=== PATIENT | female | born 1975 | race Two or more races ===

== ENCOUNTER 2017-10-24 20:15 | Emergency (ER) | payer SELFPAY ==
[~2017-10-24] VITALS: Ht 157.5 cm; Wt 76.2 kg
[2017-10-24 21:17] VITALS: BP 138/76
[2017-10-24 21:17] LABS: BASO # 0.1 x10^3/uL (0.0-0.2); BASO % 1 % (0-3); EOS # 0.1 x10^3/uL (0.0-0.7); EOS % 1 % (0-3); HEMATOCRIT 37.4 % (36.0-47.0); HEMOGLOBIN 13.1 g/dL (12.0-15.5); LYMPH # 3.8 x10^3/uL (1.0-4.8); LYMPH % 37 % (24-48); MEAN CORPUSCULAR HEMOGLOBIN 29 pg (25-35); MEAN CORPUSCULAR HGB CONC 35 g/dL (31-37); MEAN CORPUSCULAR VOLUME 83 fL (79-100); MONO # 0.8 x10^3/uL (0.0-1.1); MONO % 8 % (0-9); NEUT # 5.6 x10^3uL (1.8-7.7); NEUT % 54 % (31-73); PLATELET COUNT 247 x10^3/uL (140-400); RED BLOOD COUNT 4.52 x10^6/uL (3.50-5.40); RED CELL DISTRIBUTION WIDTH 14.5 % (11.5-14.5); WHITE BLOOD COUNT 10.4 x10^3/uL (4.0-11.0)
[2017-10-24 21:25] LABS: CALCIUM 9.3 mg/dL (8.5-10.1); CREATININE 0.8 mg/dL (0.6-1.0); GFR 79.4; POTASSIUM 3.6 mmol/L (3.5-5.1)
[2017-10-24 21:28] LABS: BILIRUBIN,URINE NEGATIVE (NEG); CLARITY,URINE CLEAR; COLOR,URINE YELLOW; NITRITE,URINE NEGATIVE (NEG); PH,URINE 7.5; PROTEIN,URINE NEGATIVE (NEG-TRACE)
[2017-10-24] MEDS ORDERED: ONDANSETRON PF 4 MG/2 ML VIAL. IV ONE (21:30)
[2017-10-24] MEDS ORDERED: diphenhydrAMINE 50 MG/ML VIAL IVP ONE (21:30)
[2017-10-24] MEDS ORDERED: DEXAMETHASONE SOD PHOS 20 MG/5 ML VIAL. IV ONE (21:30)
[2017-10-24] MEDS ORDERED: IV NORMAL SALINE 1000ML BAG 1,000 ML IV ONE (21:30)
[2017-10-24 21:31] LABS: ALBUMIN 4.2 g/dL (3.4-5.0); ALBUMIN/GLOBULIN RATIO 1.1 (1.0-1.7); TOTAL BILIRUBIN 0.3 mg/dL (0.2-1.0); TOTAL PROTEIN 8.1 g/dL (6.4-8.2)
[2017-10-24 21:33] LABS: BACTERIA,URINE FEW /HPF (0-FEW); RBC,URINE 0 /HPF (0-2); SQUAMOUS EPITHELIAL CELL,UR MOD /LPF
[2017-10-24 21:34] LABS: BARBITURATES POS (NEG); BENZODIAZEPINES NEG (NEG); CANNABINOIDS NEG (NEG); COCAINE NEG (NEG); METHADONE NEG (NEG); OPIATES NEG (NEG); PHENCYCLIDINE NEG (NEG)
[2017-10-24 21:36] LABS: AMPHETAMINE/METHAMPHETAMINE NEG (NEG)
--- NOTE | 2017-10-24 21:37 | PHYS DOC ---
Adult General Chief Complaint Chief Complaint: HEADACHE HPI HPI Patient is a 42 year old Fijian-speaking female who presents today with multiple complaints. Patient is complaining over 10 out of 10 generalize headache that has been going on intermittently for 1 month. Patient denies any known injury. Denies any fever. Denies any neck pain. She states she was seen by her own doctor on Saturday for the same headache as well as left external ear infection. She states they started her on hydrocodone, naproxen, polymyxin eardrops and cephalexin. She states the medications are not helping. She appears anxious on arrival, she states she has history of anxiety and is not on any medications. Interpretation provided by the daughter Review of Systems Review of Systems Constitutional: Denies fever or chills [] Eyes: Denies change in visual acuity, redness, or eye pain [] HENT: Reports left ear infection. Denies nasal congestion or sore throat [] Respiratory: Denies cough or shortness of breath [] Cardiovascular: No additional information not addressed in HPI [] GI: Denies abdominal pain, nausea, vomiting, bloody stools or diarrhea [] : Denies dysuria or hematuria [] Musculoskeletal: Denies back pain or joint pain [] Integument: Denies rash or skin lesions [] Neurologic: Reports headache, denies focal weakness or sensory changes [] Pysch: Appears anxious All other systems were reviewed and found to be within normal limits, except as documented in this note. Current Medications Current Medications Current Medications Medications (Trade) Dose Ordered Sig/Harjinder Start Time Stop Time Status Last Admin Dose Admin Dexamethasone Sodium Phosphate (Decadron) 10 mg 1X ONCE 10/24/17 21:30 10/24/17 21:31 DC 10/24/17 21:38 10 MG Diphenhydramine HCl (Benadryl) 25 mg 1X ONCE 10/24/17 21:30 10/24/17 21:31 DC 10/24/17 21:38 25 MG Lorazepam (Ativan) 1 mg 1X ONCE 10/24/17 21:30 10/24/17 21:31 DC 10/24/17 21:39 1 MG Ondansetron HCl (Zofran) 4 mg 1X ONCE 10/24/17 21:30 10/24/17 21:31 DC 10/24/17 21:38 4 MG Sodium Chloride 1,000 ml @ 1,000 mls/hr 1X ONCE 10/24/17 21:30 10/24/17 22:29 10/24/17 21:45 1,000 MLS/HR Allergies Allergies Allergies Coded Allergies Type Severity Reaction Last Updated Verified No Known Drug Allergies 10/24/17 No Physical Exam Physical Exam Constitutional: Well developed, well nourished, no acute distress, non-toxic appearance. [] HENT: Normocephalic, atraumatic, bilateral external ears normal, oropharynx moist, no oral exudates, nose normal. [] Eyes: PERRLA, EOMI, conjunctiva normal, no discharge. [] Neck: Normal range of motion, no tenderness, supple, no stridor. [] Cardiovascular:Heart rate regular rhythm, no murmur [] Lungs & Thorax: Bilateral breath sounds clear to auscultation [] Abdomen: Bowel sounds normal, soft, no tenderness, no masses, no pulsatile masses. [] Skin: Warm, dry, no erythema, no rash. [] Back: No tenderness, no CVA tenderness. [] Extremities: No tenderness, no cyanosis, no clubbing, ROM intact, no edema. [] Neurologic: Alert and oriented X 3, normal motor function, normal sensory function, no focal deficits noted. Cranial nerves II through XII intact Psychologic: Patient appears very anxious. Current Patient Data Vital Signs Vital Signs Date Time Temp Pulse Resp B/P (MAP) Pulse Ox O2 Delivery O2 Flow Rate FiO2 10/24/17 20:25 98.7 73 22 151/90 (110) 99 Room Air 98.7 Lab Values Laboratory Tests Test 10/24/17 20:55 10/24/17 21:10 White Blood Count 10.4 x10^3/uL (4.0-11.0) Red Blood Count 4.52 x10^6/uL (3.50-5.40) Hemoglobin 13.1 g/dL (12.0-15.5) Hematocrit 37.4 % (36.0-47.0) Mean Corpuscular Volume 83 fL (79-100) Mean Corpuscular Hemoglobin 29 pg (25-35) Mean Corpuscular Hemoglobin Concent 35 g/dL (31-37) Red Cell Distribution Width 14.5 % (11.5-14.5) Platelet Count 247 x10^3/uL (140-400) Neutrophils (%) (Auto) 54 % (31-73) Lymphocytes (%) (Auto) 37 % (24-48) Monocytes (%) (Auto) 8 % (0-9) Eosinophils (%) (Auto) 1 % (0-3) Basophils (%) (Auto) 1 % (0-3) Neutrophils # (Auto) 5.6 x10^3uL (1.8-7.7) Lymphocytes # (Auto) 3.8 x10^3/uL (1.0-4.8) Monocytes # (Auto) 0.8 x10^3/uL (0.0-1.1) Eosinophils # (Auto) 0.1 x10^3/uL (0.0-0.7) Basophils # (Auto) 0.1 x10^3/uL (0.0-0.2) Sodium Level 137 mmol/L (136-145) Potassium Level 3.6 mmol/L (3.5-5.1) Chloride Level 100 mmol/L (98-107) Carbon Dioxide Level 30 mmol/L (21-32) Anion Gap 7 (6-14) Blood Urea Nitrogen 15 mg/dL (7-20) Creatinine 0.8 mg/dL (0.6-1.0) Estimated GFR (Cockcroft-Gault) 79.4 BUN/Creatinine Ratio 19 (6-20) Glucose Level 142 mg/dL (70-99) H Calcium Level 9.3 mg/dL (8.5-10.1) Total Bilirubin 0.3 mg/dL (0.2-1.0) Aspartate Amino Transferase (AST) 139 U/L (15-37) H Alanine Aminotransferase (ALT) 261 U/L (14-59) H Alkaline Phosphatase 87 U/L (46-116) Total Protein 8.1 g/dL (6.4-8.2) Albumin 4.2 g/dL (3.4-5.0) Albumin/Globulin Ratio 1.1 (1.0-1.7) Ethyl Alcohol Level < 10 mg/dL (0-10) Urine Collection Type Unknown Urine Color Yellow Urine Clarity Clear Urine pH 7.5 Urine Specific [place] 1.010 Urine Protein Negative mg/dL (NEG-TRACE) Urine Glucose (UA) Negative mg/dL (NEG) Urine Ketones (Stick) Negative mg/dL (NEG) Urine Blood Negative (NEG) Urine Nitrite Negative (NEG) Urine Bilirubin Negative (NEG) Urine Urobilinogen Dipstick 1.0 mg/dL (0.2 mg/dL) Urine Leukocyte Esterase Small (NEG) Urine RBC 0 /HPF (0-2) Urine WBC 5-10 /HPF (0-4) Urine Squamous Epithelial Cells Mod /LPF Urine Bacteria Few /HPF (0-FEW) Urine Mucus Slight /LPF Urine Opiates Screen Neg (NEG) Urine Methadone Screen Neg (NEG) Urine Barbiturates Pos (NEG) Urine Phencyclidine Screen Neg (NEG) Urine Amphetamine/Methamphetamine Neg (NEG) Urine Benzodiazepines Screen Neg (NEG) Urine Cocaine Screen Neg (NEG) Urine Cannabinoids Screen Neg (NEG) Urine Ethyl Alcohol Neg (NEG) Laboratory Tests 10/24/17 20:55 Laboratory Tests 10/24/17 20:55 EKG EKG [] Radiology/Procedures Radiology/Procedures []PROCEDURE: CT HEAD WO CONTRAST PQRS Compliance statement: One or more of the following individualized dose reduction techniques were utilized for this examination: 1. Automated exposure control. 2. Adjustment of the mA and/or kV according to patient size. 3. Use of iterative reconstruction technique. Indication:headache x 1 month, no priors TECHNIQUE: CT head without IV contrast COMPARISON:None FINDINGS: No pathologic extra-axial or intra-axial fluid collection. The ventricles and basal cisterns are within normal limits. No acute intracranial bleed. No focal loss of burgos-white differentiation. Orbits within normal limits. No suspicious calvarial lesion. There is complete opacification of the right maxillary sinus. Rest of the paranasal sinuses and mastoid air cells are clear. IMPRESSION: 1. No acute intracranial process. 2. Chronic right maxillary sinus disease. Electronically signed by: Darien Rojas DO (10/24/2017 10:02 PM) [facility] DICTATED and SIGNED BY: DARIEN ROJAS DO DATE: 10/24/172156 Course & Med Decision Making Course & Med Decision Making Pertinent Labs and Imaging studies reviewed. (See chart for details) This is a 42-year-old female patient presented to the ED today with multiple complaints specifically a headache that has been going on for month. Patient was anxious on arrival to the ED, she states she has history of anxiety and is not on any medication. She is currently being treated for otitis externa, she is on hydrocodone and cephalexin naproxen and polymyxin eardrops. CBC with no acute findings, CMP with AST of 139 ALT of 261, patient has no abdominal pain. CT of the head was negative for any acute findings, noted for chronic sinusitis. Patient was given IV fluids Decadron Zofran Benadryl and Ativan. She is resting comfortably. She states her headache has eased off and she is no longer anxious. Will be discharged with instructions to continue taking the rest of her medications she got from her PCP. Also given prescription for Xanax 10 tablets. Instructed to follow-up with the PCP in the course of next week. Dragon Disclaimer Dragon Disclaimer This electronic medical record was generated, in whole or in part, using a voice recognition dictation system. Departure Departure Impression: Primary Impression: Headache Additional Impressions: Anxiety Chronic sinusitis Otitis externa, left Transaminitis Disposition: HOME, SELF-CARE Condition: STABLE Referrals: NO PCP (PCP) Follow-up with your own doctor in the course of this week or next week Patient Instructions: Anxiety and Panic Attacks, General Headache Without Cause , [id number] Additional Instructions: You were evaluated in the emergency room for headache and anxiety. Please continue taking the medications you got from your own doctor. Take the prescribed Xanax as needed for anxiety. Come back to the emergency room at any point symptoms worsen. Scripts Alprazolam (XANAX) 0.5 Mg Tablet 1 TAB PO TID PRN for ANXIETY / AGITATION, #10 TAB 0 Refills Prov: VENTURA MARQUIS APRN 10/24/17 Problem Qualifiers Primary Impression: Headache Headache type: unspecified Headache chronicity pattern: unspecified pattern Intractability: not intractable Qualified Codes: R51 - Headache Additional Impressions: Chronic sinusitis Sinusitis location: maxillary Qualified Codes: J32.0 - Chronic maxillary sinusitis Otitis externa, left Otitis externa type: other infective Chronicity: acute Qualified Codes: H60.392 - Other infective otitis externa, left ear VENTURA MARQUIS [employer] Oct 24, 2017 21:37
--- NOTE | 2017-10-24 22:05 | RAD ---
PQRS Compliance statement: One or more of the following individualized dose reduction techniques were utilized for this examination: 1. Automated exposure control. 2. Adjustment of the mA and/or kV according to patient size. 3. Use of iterative reconstruction technique. Indication:headache x 1 month, no priors TECHNIQUE: CT head without IV contrast COMPARISON:None FINDINGS: No pathologic extra-axial or intra-axial fluid collection. The ventricles and basal cisterns are within normal limits. No acute intracranial bleed. No focal loss of burgos-white differentiation. Orbits within normal limits. No suspicious calvarial lesion. There is complete opacification of the right maxillary sinus. Rest of the paranasal sinuses and mastoid air cells are clear. IMPRESSION: 1. No acute intracranial process. 2. Chronic right maxillary sinus disease. Electronically signed by: Darien Hall DO (10/24/2017 10:02 PM) [facility]
[2017-10-24] MEDS ORDERED: ALPR0.5T PO (22:24)
== END 2017-10-24 22:30 | disposition home or self-care (01) ==
LOC: ER 20:15
DX: R51 Headache (principal); F41.9 Anxiety disorder, unspecified; H60.92 Unspecified otitis externa, left ear; R74.0 Nonspecific elevation of levels of transaminase and lactic acid dehydrogenase [LDH]; J32.0 Chronic maxillary sinusitis
CPT/HCPCS: 36415; 70450; 80053; 80307; 81001; 85025; 87086; 96374; 96375; 99285; G0480; J1100; J1200; J2060; J2405; J7030; G0479

== ENCOUNTER 2018-02-22 01:26 | Emergency (ER) | payer SELFPAY ==
[~2018-02-22] VITALS: Ht 154.9 cm; Wt 71.7 kg
[~2018-02-22 01:26] MED LIST: ALPR0.5T PO
[2018-02-22 02:35] VITALS: BP 123/72
[2018-02-22] MEDS ORDERED: DOXY100T PO (02:56)
--- NOTE | 2018-02-22 03:04 | PHYS DOC ---
Past Medical History Past Medical History: Asthma, Migraines Past Surgical History: Alcohol Use: Rarely Drug Use: None Adult General Chief Complaint Chief Complaint: HEADACHE HPI HPI Patient is a 42 year old female with a hx of migraines who presents for evaluation of HAs. Pt reports intermittent HAs over the past week which have increased in frequency over the past 2 days. She describes the HAs as pressure mostly located on the top of her head but also reports pain and pressure located around her frontal and maxillary sinuses, as well as, jaw tightness. She also reports tingling of her lips and throat tightness. She denies any recent cough, fevers or congestion. She has attempted tylenol, NSAIDs and excedrin with complete Sx resolve. She last took 800 mg of Naproxyn around 3 hours ago along with an antihistamine and Melatonin and states she has no pain or Sx at this time. She reports he HAs are worse when she is at home OR AT work or while driving. No one else in her home has had similar Sx recently. She does report feeling safe at home and denies any SI or thoughts of self harm. She has a hx of migraine HAs but states the HAs he has been dealing with recently are different than these. She denies photophobia, nausea and vomiting. The patient was seen in the ED for PEGUERO in October of this year where she had a negative head CT other than findings of chronic sinusitis. No other complaints at this time. Review of Systems Review of Systems Constitutional: Denies fever or chills [] Eyes: Denies change in visual acuity, redness, or eye pain. No photophobia. HENT: + sinus pressure, Denies nasal congestion or sore throat [] Respiratory: Denies cough or shortness of breath [] Cardiovascular: No additional information not addressed in HPI [] GI: Denies abdominal pain, nausea, vomiting, bloody stools or diarrhea [] : Denies dysuria or hematuria [] Musculoskeletal: Denies back pain or joint pain [] Integument: Denies rash or skin lesions [] Neurologic: + PEGUERO, Denies focal weakness or sensory changes [] All other systems were reviewed and found to be within normal limits, except as documented in this note. Allergies Allergies Allergies Coded Allergies Type Severity Reaction Last Updated Verified No Known Drug Allergies 10/24/17 No Physical Exam Physical Exam Constitutional: Well developed, well nourished, no acute distress, non-toxic appearance. [] HENT: Normocephalic, atraumatic, bilateral external ears normal, oropharynx moist, no oral exudates, nose normal. [] pos sinus ttp noted b/l max and frontal no temporal artery ttp noted. Eyes: PERRLA, EOMI, conjunctiva normal, no discharge. [] Neck: Normal range of motion, no tenderness, supple, no stridor. [] Cardiovascular:Heart rate regular rhythm, no murmur [] Lungs & Thorax: Bilateral breath sounds clear to auscultation [] Abdomen: Bowel sounds normal, soft, no tenderness, no masses, no pulsatile masses. [] Skin: Warm, dry, no erythema, no rash. [] Back: No tenderness, no CVA tenderness. [] Extremities: No tenderness, no cyanosis, no clubbing, ROM intact, no edema. [] Neurologic: Alert and oriented X 3, normal motor function, normal sensory function, no focal deficits noted. [] fnf and cn's intact Psychologic: Affect normal, judgement normal, mood anxiety noted denies si Current Patient Data Vital Signs Vital Signs Date Time Temp Pulse Resp B/P (MAP) Pulse Ox O2 Delivery O2 Flow Rate FiO2 02/22/18 02:35 98.0 62 18 123/72 (89) 99 Room Air 98.0 EKG EKG [] Radiology/Procedures Radiology/Procedures [] Course & Med Decision Making Course & Med Decision Making Pertinent Labs and Imaging studies reviewed. (See chart for details) Assessment: 42 y/o female presents with PEGUERO and sinus pressure Patient is very well-appearing overall neurologic exam is normal and a negative head CT already earlier this year except for some sinusitis findings and she has some symptoms referrable to that again. Trial of antibiotics for this patient may have migraine component currently her headache is resolved. The headache does not appear to be directly related to any certain location she has no fever her neck is supple she has had no trauma she denies any domestic violence she denies suicidality she is feeling better at this time I think she can go home no red flags noted. Dragon Disclaimer Dragon Disclaimer This electronic medical record was generated, in whole or in part, using a voice recognition dictation system. Departure Departure Impression: Primary Impression: Headache Disposition: HOME, SELF-CARE Condition: STABLE Referrals: NO PCP (PCP) Scripts Doxycycline Hyclate (DOXYCYCLINE HYCLATE) 100 Mg Tablet 1 TAB PO BID, #20 TAB Prov: SAMMI VICTORIA MD 02/22/18 SAMMI VICTORIA MD Feb 22, 2018 03:04
[2018-02-26] MEDS ORDERED: SUMA50TA3 PO (11:23)
[2018-02-26] MEDS ORDERED: NAPR-683 PO (11:23)
[2018-02-26] MEDS ORDERED: CITA20TA9 PO (11:26)
== END 2018-02-22 03:20 | disposition home or self-care (01) ==
LOC: ER 01:26
DX: R51 Headache (principal); G43.909 Migraine, unspecified, not intractable, without status migrainosus; J45.909 Unspecified asthma, uncomplicated
CPT/HCPCS: 99283

== ENCOUNTER 2018-11-21 02:22 | Emergency (ER) | payer SELFPAY ==
[~2018-11-21] VITALS: Ht 157.5 cm; Wt 65.8 kg
[~2018-11-21 02:22] MED LIST changes: +CITA20TA9 PO; +DOXY100T PO; +NAPR-683 PO; +SUMA50TA3 PO
[2018-11-21] MEDS ORDERED: KETOROLAC 15 MG/ML VIAL. IV ONE (04:15)
[2018-11-21] MEDS ORDERED: IV NORMAL SALINE 1000ML BAG 1,000 ML IV ONE (04:15)
[2018-11-21] MEDS ORDERED: DEXAMETHASONE SOD PHOS 20 MG/5 ML VIAL. IV ONE (04:15)
[2018-11-21] MEDS ORDERED: ONDANSETRON PF 4 MG/2 ML VIAL. IV ONE (04:15)
[2018-11-21] MEDS ORDERED: diphenhydrAMINE 50 MG/ML VIAL IVP ONE (04:15)
[2018-11-21] MEDS ORDERED: BUTA1TAB23 PO (04:42)
--- NOTE | 2018-11-21 04:42 | PHYS DOC ---
Past Medical History Past Medical History: Migraines Past Surgical History: Alcohol Use: None Drug Use: None Adult General Chief Complaint Chief Complaint: HEADACHE HPI HPI Patient is a 43 year old [f__sex] who presents with [] Review of Systems Review of Systems Constitutional: Denies fever or chills Eyes: Denies redness or eye pain HENT: Denies nasal congestion or sore throat Respiratory: Denies cough or shortness of breath Cardiovascular: Denies chest pain or palpitations GI: Denies abdominal pain, nausea, or vomiting : Denies dysuria or hematuria Musculoskeletal: Denies back pain or joint pain Integument: Denies rash or skin lesions Neurologic: Denies headache, focal weakness or sensory changes Complete systems were reviewed and found to be within normal limits, except as documented in this note. Current Medications Current Medications Current Medications Medications (Trade) Dose Ordered Sig/Harjinder Start Time Stop Time Status Last Admin Dose Admin Dexamethasone Sodium Phosphate (Decadron) 10 mg 1X ONCE 11/21/18 04:15 11/21/18 04:36 DC 11/21/18 04:30 10 MG Diphenhydramine HCl (Benadryl) 25 mg 1X ONCE 11/21/18 04:15 11/21/18 04:36 DC 11/21/18 04:30 25 MG Ketorolac Tromethamine (Toradol 15mg Vial) 15 mg 1X ONCE 11/21/18 04:15 11/21/18 04:36 DC 11/21/18 04:30 15 MG Ondansetron HCl (Zofran) 4 mg 1X ONCE 11/21/18 04:15 11/21/18 04:36 DC 11/21/18 04:30 4 MG Sodium Chloride 1,000 ml @ 1,000 mls/hr 1X ONCE 11/21/18 04:15 11/21/18 05:14 DC 11/21/18 04:30 1,000 MLS/HR Allergies Allergies Allergies Coded Allergies Type Severity Reaction Last Updated Verified No Known Drug Allergies 10/24/17 No Physical Exam Physical Exam Constitutional: Well developed, well nourished, no acute distress, non-toxic appearance HENT: Normocephalic, atraumatic, oropharynx moist Eyes: PERRL, EOMI, conjunctiva normal, no discharge Neck: Normal range of motion, no tenderness, supple Cardiovascular: Heart rate normal, regular rhythm Lungs & Thorax: Bilateral breath sounds clear to auscultation, no wheezing Abdomen: Soft, no tenderness Skin: Warm, dry, no erythema, no rash Back: No tenderness, no CVA tenderness Extremities: No tenderness, ROM intact, no edema Neurologic: Alert and oriented X 3, normal motor function, normal sensory function, no focal deficits noted Psychologic: Affect normal, judgement normal, mood normal Current Patient Data Vital Signs Vital Signs Date Time Temp Pulse Resp B/P (MAP) Pulse Ox O2 Delivery O2 Flow Rate FiO2 11/21/18 04:53 55 95 11/21/18 03:10 97.9 18 119/81 (94) Room Air 97.9 EKG EKG [] Radiology/Procedures Radiology/Procedures [] Course & Med Decision Making Course & Med Decision Making Patient stable for discharge with outpatient follow-up with PCP. Discussed findings and plan with patient and family, who acknowledge understanding and agreement. Dragon Disclaimer Dragon Disclaimer This electronic medical record was generated, in whole or in part, using a voice recognition dictation system. Departure Departure Impression: Primary Impression: Headache Disposition: 01 HOME, SELF-CARE Condition: IMPROVED Referrals: NO PCP (PCP) NICK NAGEL MD Patient Instructions: Headache, FAQs Scripts Butalb/Acetaminophen/Caffeine ([id number] 50-325-40) 1 Each Tablet 1 EACH PO Q6HRS PRN for HEADACHE, #14 TAB Prov: CHLOE TAYLOR DO 11/21/18 Problem Qualifiers Primary Impression: Headache Headache type: unspecified Headache chronicity pattern: acute headache Intractability: not intractable Qualified Codes: R51 - Headache CHLOE TAYLOR DO Nov 21, 2018 04:42
[2018-11-21 04:53] VITALS: BP 131/82
== END 2018-11-21 05:10 | disposition home or self-care (01) ==
LOC: ER 02:22
DX: G43.909 Migraine, unspecified, not intractable, without status migrainosus (principal)
CPT/HCPCS: 96374; 96375; 99284; J1100; J1200; J1885; J2405; J7030